=== PATIENT | female | born 1970 | race Two or more races ===

== ENCOUNTER 2017-09-06 08:02 | Emergency (ER) | payer BC, OTHER ==
[~2017-09-06] VITALS: Ht 172.7 cm; Wt 90.7 kg
[~2017-09-06 08:02] MED LIST: IRONPOW5
[2017-09-06 08:35] VITALS: BP 141/85
[2017-09-06] MEDS ORDERED: KETOROLAC TROMETH 60MG/2ML VIAL IM ONE (08:45)
== END 2017-09-06 09:11 | disposition home or self-care (01) ==
LOC: EDBD 08:02 → ER 08:02
DX: S20.219A Contusion of unspecified front wall of thorax, initial encounter (principal); V43.52XA Car driver injured in collision with other type car in traffic accident, initial encounter; Y93.89 Activity, other specified; Y92.89 Other specified places as the place of occurrence of the external cause; Y99.8 Other external cause status
CPT/HCPCS: 71020; 96372; 99284; J1885